=== PATIENT | male | born 1945 | race Caucasian/White ===

== ENCOUNTER 2017-06-06 10:33 | Emergency (ER) | payer MEDICARE, OTHER, SELFPAY ==
[2017-06-06 10:58] VITALS: BP 150/89; PULSE 91; RESP 22; TEMP 37.7; O2SAT 97; BMI 29.0
--- NOTE | 2017-06-06 10:58 | XR_ITS ---
XR chest 2V HISTORY: ITS.REASON: COUGH ORDERING PHYSICIAN: Jana Contreras PATIENT AGE: 71 years COMPARISON: 05/11/2014 FINDINGS: The cardiomediastinal silhouette and pulmonary vascularity are within normal limits. The lungs are clear without infiltrates, suspicious nodules, or pleural effusions. There is a bone plate overlying the lower cervical spine. IMPRESSION: No change with no acute finding
--- NOTE | 2017-06-06 11:08 | HMH.EDUTC ---
[facility] [place] Clinical Impression: Influenza Disposition: Home, Self-Care Condition on Discharge: Good Instructions: Influenza, Cough Additional Instructions: ? Start Tamiflu today if you are going to take it. Discussed risk and possible benefits. ? Lots of rest ? Increase Fluids water, Gatorade, powerade, pedialyte,if infant/toddler/child ? Alternate Tylenol and / or ibuprofen as discussed for fever, aches, chills x 24 hours without medication for symptoms ? Follow up IMMEDIATELY for new or worsening Symptoms OR no noticeable improvement over the next 48-72 hours, 911 for difficulty or breathing ? You or your child area contagious until no fever, aches, chills for 24 hours with medication for symptoms Prescriptions: Dextromethorphan Polistirex [Delsym] 10 ml PO Q12RT PRN #200 [email or web address] PRN Reason: Cough Oseltamivir Phosphate [Tamiflu 75mg Capsule] 75 mg PO BID #10 capsule Referrals: Tommie Mckinnon MD [Primary Care Provider] - Time of Disposition: 11:36 Medical Decision Making Vital Signs: 06/06/17 10:58 Temperature 99.9 F H Temperature Source Temporal Artery Scan Pulse Rate [Right Brachial] 91 H Respiratory Rate 22 Blood Pressure [Right Arm] 150/89 Blood Pressure Mean [Right Arm] 109 Blood Pressure Source [Right Arm] Automatic Cuff Blood Pressure Position [Right Arm] Sitting 02 Sat by Pulse Oximetry 97 Oxygen Delivery Method Room Air - Lab Data Lab Results 06/06/17 10:57: Influenza Type A Ag Positive A, Influenza Type B Ag Negative Orders (Tests/Meds): ORDERS Category Date Time Status Chest XR 2 view (NOT portable) [XR chest 2V] Stat Exams 06/06/17 10:58 Taken - Radiology Data #1 Image(s): Chest Image Reviewed: Yes I discussed the image results w/the radiologist Preliminary Findings: Normal/NAD - Robbi Inquiry Pt receiving controlled substance: No Robbi was queried for this patient: No [facility] [place] - General Stated complaint: cough lungs hurting Mode of Arrival: Ambulatory Source of Information: Patient Limitations: No Limitations Description of Symptoms (Recalled from Triage Doc. by RN): C/O COUGH, CHILLS, AND HOT FLASHES HEENT Symptoms (Recalled from RN notes): No Resp Symptoms (Recalled from RN notes): Yes (COUGH) Skin Symptoms (Recalled from RN notes): No MS Symptoms (Recalled from RN notes): No Functional Status (Recalled from RN notes): N/A - History of Present Illness Provider Complaint: Patient state that he has been having cough, congestion, body aches fever and chills since yesterday that has continued to get worse State that his cough has continued to get worse. State that he has tried several home treatments but nothing has worked - Related Data Home Medications Medication Instructions Recorded Confirmed Aspirin [Aspirin 81mg chewable 81 mg PO DAILY 06/06/17 06/06/17 tab] Losartan/Hydrochlorothiazide 50 mg PO DAILY 06/06/17 06/06/17 [Losartan-Hctz 50-12.5 mg Tab] Rosuvastatin Calcium [Crestor] 20 mg PO DAILY 06/06/17 06/06/17 Previous Rx's Medication Instructions Recorded Dextromethorphan Polistirex 10 ml PO Q12RT PRN #200 [email or web address] 06/06/17 [Delsym] Oseltamivir Phosphate [Tamiflu 75 mg PO BID #10 cap 06/06/17 75mg Capsule] Allergies Allergy/AdvReac Type Severity Reaction Status Date / Time atorvastatin [From LIPITOR] Allergy Intermediate Unverified 05/15/17 14:57 - Worker's Comp Is this a Worker's Comp case?: No [facility] History I have reviewed the patient's past medical history: Yes - *Social History Smoking Status: Never smoker Alcohol Intake: never - Psychiatric History Expresses thoughts of harming self/others: None Suicide Plan Description: No Plan ROS Obtained: Yes All systems reviewed & no additional complaints Physical Exam - General General appearance: alert, in no apparent distress - ENT ENT exam: Present: normal exam, normal oropharynx, mucous membranes moist, TM's normal bilate
[2017-06-06 11:10] LABS: UTC Influenza A Antigen Positive (Negative); UTC Influenza B Antigen Negative (Negative)
== END 2017-06-06 11:48 | disposition home or self-care (01) ==
PROVIDERS: Emergency Provider Nurse Practitioner; Family Provider Family Medicine; PCP Family Medicine
DX: J10.1 Influenza due to other identified influenza virus with other respiratory manifestations (principal); Z88.8 Allergy status to other drugs, medicaments and biological substances
CPT/HCPCS: G0463; 71046; 87804; 99202

== ENCOUNTER → 2017-09-18 11:19 | Outpatient (CLI) | payer MEDICARE, OTHER, SELFPAY ==
--- NOTE | 2017-09-18 11:26 | XR_ITS ---
XR KUB HISTORY: ITS.REASON: UROLITHIASIS ORDERING PHYSICIAN: Nixon Graham MD PATIENT AGE: 72 years FINDINGS: There is a 2 mm calcific density in the left upper quadrant which may be due to a nonobstructing stone as seen on previous CT scan of 06/12/2016. No ureteral calculi apparent. Bowel gas pattern is nonspecific. There are degenerative changes in the lumbar spine. IMPRESSION: Left nephrolithiasis.
== END ==
PROVIDERS: PCP Family Medicine; Visit Provider Urology
DX: N20.9 Urinary calculus, unspecified (principal)
CPT/HCPCS: 74018

== ENCOUNTER → 2017-11-29 08:32 | Outpatient (POV) | payer MEDICARE, SELFPAY | PROVIDERS: Visit Provider Dermatology | DX: Z00.00 Encounter for general adult medical examination without abnormal findings (principal) ==

== ENCOUNTER → 2018-02-28 14:54 | Outpatient (REF) | payer MEDICARE, SELFPAY ==
[2018-02-28 15:17] LABS: Blood Urea Nitrogen 30 mg/dL (7-18); Creatinine,Serum 1.11 mg/dL (0.70-1.30); Estimated Glomerular Filt Rate 65 ml/min (>60); GFR (African American) 78 ML/MIN (>60)
== END ==
LOC: LAB 14:54
PROVIDERS: Visit Provider Family Medicine
DX: R41.3 Other amnesia (principal)
CPT/HCPCS: 82565; 84520

== ENCOUNTER → 2018-03-07 09:06 | Outpatient (CLI) | payer MEDICARE, OTHER, SELFPAY ==
--- NOTE | 2018-03-07 09:08 | MR_ITS ---
MR head/brain wo/w con Ordering Physician: Tommie Mckinnon MD Patient Age: 72 years: Male HISTORY: ITS.REASON: MEMORY LOSS, HEADACHE Memory loss. Headache that starts behind the right ear and goes to the back of head as well as top of head. Dizzy. Blurred vision. Symptoms one year. Progressing slowly TECHNIQUE: Pre and postcontrast imaging of brain : Precontrast Multiplanar FLAIR, T1, T2 weighted images along with axial diffusion/ADC imaging performed on 1.5 T. Siemens, MRI. Postcontrast imaging [id number] ProHance T1-weighted images axial & coronal plane performed COMPARISON : FINDINGS Normal anatomy. Mild age-appropriate cerebral atrophy Normal cranial cervical junction,. Normal corpus callosum. The ventricles and basal cisterns normal.. Normal sella & suprasellar region... Parasellar & [place] region grossly unremarkable on this standard survey MR study . Diffusion images reveal no acute or recent infarct. No mass lesion. No territorial infarct. No extra-axial collection. . Moderately pronounced Chronic small vessel deep white matter ischemic gliotic changes: T2 weighted images as well as the sensitive FLAIR images show numerous high signal foci scattered throughout the white matter of the cerebral hemispheres bilaterally, with numerous periventricular high signal as well as subcortical high signal foci.. Findings are most compatible with chronic small vessel deep white matter ischemic gliotic foci in changes changes. These are high signal foci fairly numerous, with particularly confluent areas of increased deep white matter signal changes seen superior to the atria of the lateral ventricles, left more so than right. . With this there is also some very subtle increased signal transversing the central manuela which also reflects minor vessel ischemic chronic changes at this level. Cerebellum and cerebellar peduncles otherwise unremarkable. Slight generous perivascular spaces/Virchow-Omid spaces diffusely seen throughout the deep white matter cerebral hemispheres bilaterally.-Nonspecific observation but may reflect history of underlying hypertension. Postcontrast studies reveal no areas of enhancement.No enhancing mass lesion. CP angles clear. Cranial nerve VII and VIII appear satisfactory. IACs satisfactory, symmetric.. Temporal bone/Mastoid air cells unremarkable. The visualized paranasal sinuses well-developed and clear.... Moderate engorgement nasal turbinates bilaterally incidentally noted... Scalp and skull unremarkable. IMPRESSION 1.. Chronic Small Vessel deep white matter ischemic/ gliotic changes.-Moderately pronounced at the cerebral hemispheres bilaterally as described above.. Only scant involvement manuela 2. Age-appropriate Mild cerebral atrophy. . 3. No mass lesion. No abnormal areas of enhancement.
--- NOTE | 2018-03-07 10:23 | HMH.ITSHM ---
ROSUVASTATIN TAMSULOSIN LOSARTAN ASPIRIN NEXIUM
== END ==
PROVIDERS: Family Provider Family Medicine; Visit Provider Family Medicine
DX: R41.3 Other amnesia (principal); R51 Headache
CPT/HCPCS: 70553

== ENCOUNTER → 2018-08-20 16:02 | Outpatient (CLI) | payer MEDICARE, OTHER, SELFPAY ==
--- NOTE | 2018-08-20 16:12 | CT_ITS ---
CT abdomen pelvis wo con CLINICAL INDICATION: Right flank pain, history kidney stones ITS.REASON: FLANK PAIN ORDERING PHYSICIAN: Delmer Mays MD PATIENT AGE: 72 years COMPARISON: 06/12/2016 TECHNIQUE: Axial images obtained with sagittal and coronal reformats. All CT scans at the facility use one or more dose reduction, viz: automated exposure control, ma/kV adjustment per patient size (including targeted exams where dose is matched to indication, i.e. head), or iterative reconstruction technique. PROCEDURE: Oral Contrast: None IV Contrast: None . FINDINGS: Lower thorax: Coronary artery calcifications. Small hiatal hernia. The liver, gallbladder, spleen, adrenal glands, and pancreas have an unremarkable unenhanced appearance. There are nonobstructing punctate renal calculi. Largest stone on the right is in the upper pole at 2 mm. The largest stone on the left is in the mid polar region at 5 mm. No ureteral calculi. No hydronephrosis. There is a 1.9 cm soft tissue density medial to the right kidney with some minimal calcification consistent with a renal artery aneurysm. This has been present dating back to 01/29/2014 and is only slightly larger. There is no evidence of acute retroperitoneal hemorrhage. There are small right renal cyst noted. Prior appendectomy. A diverticulum is present within the cecum medially. There is diverticulosis of the descending and sigmoid colon but no evidence of diverticulitis. The prostate is prominent at 5.4 cm. There is degenerative disc disease in the lumbar spine. No acute bony findings are evident. IMPRESSION: 1. There are nonobstructing bilateral renal calculi. No obstructing renal calculi or ureteral calculi and no hydronephrosis. 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 No evidence of acute retroperitoneal hemorrhage. 3. Colonic diverticulosis
== END ==
PROVIDERS: PCP Family Medicine; Visit Provider Family Medicine
DX: R10.9 Unspecified abdominal pain (principal)
CPT/HCPCS: 74176

== ENCOUNTER → 2018-09-17 11:11 | Outpatient (CLI) | payer MEDICARE, OTHER, SELFPAY ==
--- NOTE | 2018-09-17 11:16 | XR_ITS ---
XR KUB HISTORY: ITS.REASON: KIDNEY STONES ORDERING PHYSICIAN: Nixon Graham MD PATIENT AGE: 73 years COMPARISON: 09/18/2017 FINDINGS: A 3 mm stone is present in the mid polar region of the left kidney. No other significant anomalies evident. No obvious ureteral calculi and no significant change from the previous exam. There is a 7 mm area of calcification noted over the left L2 transverse process and may be related to dense renal artery calcification IMPRESSION: Left nephrolithiasis
[2018-09-17 15:26] LABS: Prostate Specific Ag Screen 2.3 ng/mL (0.0-4.0)
== END ==
PROVIDERS: PCP Family Medicine; Visit Provider Urology
DX: N20.0 Calculus of kidney (principal); Z12.5 Encounter for screening for malignant neoplasm of prostate
CPT/HCPCS: 36415; 74018; G0103

== ENCOUNTER → 2019-01-13 08:50 | Outpatient (CLI) | payer MEDICARE, OTHER, SELFPAY | PROVIDERS: PCP Family Medicine; Visit Provider Family Medicine | DX: R00.2 Palpitations (principal) | CPT/HCPCS: 93225; 93226 ==

== ENCOUNTER → 2019-02-13 12:03 | Outpatient (CLI) | payer MEDICARE, OTHER, SELFPAY ==
--- NOTE | 2019-02-13 12:08 | XR_ITS ---
PROCEDURE: XR KUB CLINICAL INDICATION: kidney stone COMPARISON: CT ABDOMEN PELVIS WO CON from 02/05/2019 FINDINGS: Previously noted proximal left ureteral stone is not identified. Pelvic phleboliths are present. No acute bony findings. Nonspecific bowel gas pattern IMPRESSION: No acute findings. Dictated by: Lefty Day MD 02/13/2019 12:38 Electronically signed by Lefty Day MD in [place] 02/13/2019 12:38
== END ==
PROVIDERS: PCP Family Medicine; Visit Provider Urology
DX: N20.0 Calculus of kidney (principal)
CPT/HCPCS: 74018

== ENCOUNTER → 2019-02-18 14:17 | Outpatient (CLI) | payer MEDICARE, OTHER, SELFPAY ==
--- NOTE | 2019-02-18 14:23 | CT_ITS ---
PROCEDURE: CT ABDOMEN PELVIS WO CON CLINICAL HISTORY: NEPHROLITHIASIS, LT FLANK PAIN, GROSS HEMATURIA COMPARISON: CT ABDOMEN PELVIS WO CON from 02/05/2019 TECHNIQUE: Axial images obtained with sagittal and coronal reformats. All CT scans at the facility use one or more dose reduction, viz: automated exposure control, ma/kV adjustment per patient size (including targeted exams where dose is matched to indication, i.e. head), or iterative reconstruction technique. FINDINGS: Lung bases are clear. There is a small hiatal hernia. There is a subtle isodense to the in the patent dome centrally on image number 9 nonspecific too small to categorize. The spleen, adrenal glands, and pancreas have an unremarkable appearance. The gastric wall appears thickened in the fundus and body of the stomach and could be due to nondistention. No radiopaque gallstones evident. There is a punctate 2 mm stone in the upper pole of the right kidney with small right renal cyst. 2 mm stone is present in the lower pole of the left kidney. There is mild dilatation of the left renal collecting system. Previously described proximal ureteral stone on the left is no longer apparent. There is some minimal prominence of the left ureter but no ureteral calculi are evident. There is a mild amount of retained colonic feces. No evidence of appendicitis or diverticulitis. There is diverticulosis of the descending and sigmoid colon. The prostate is enlarged at 5.5 cm. Degenerative changes are noted in the lumbar spine. IMPRESSION: 1. Previously noted left proximal ureteral stone is no longer apparent. 2. Mild dilatation of left renal pelvocaliceal system and ureter which may be related to recently passed stone. No stones are evident in the urinary bladder. 3. Nonobstructing bilateral renal calculi. 4. Colonic diverticulosis. Dictated by: Lefty Day MD 02/18/2019 15:17 Electronically signed by Lefty Day MD in [place] 02/18/2019 15:17
== END ==
PROVIDERS: PCP Family Medicine; Visit Provider Family Medicine
DX: N20.0 Calculus of kidney (principal); R10.9 Unspecified abdominal pain; R31.0 Gross hematuria
CPT/HCPCS: 74176

== ENCOUNTER → 2019-09-23 10:10 | Outpatient (CLI) | payer MEDICARE, OTHER, SELFPAY ==
--- NOTE | 2019-09-23 10:15 | XR_ITS ---
PROCEDURE: XR KUB CLINICAL INDICATION: kidney stone COMPARISON: XR KUB from 02/13/2019 CT ABDOMEN PELVIS WO CON from 02/18/2019 FINDINGS: Gas pattern-The bowel gas pattern is unremarkable. No obvious obstruction. Calcifications-No abnormal calcifications are evident. No obvious renal or ureteral calculi. Bones-No acute bony anomalies evident. Pelvic calcifications are once again noted consistent with phleboliths. There are mild degenerative changes in the lower lumbar spine and hips. IMPRESSION: No acute findings. Dictated by: Lefty Day MD 09/23/2019 10:25 Electronically signed by Lefty Day MD in [place] 09/23/2019 10:25
== END ==
PROVIDERS: PCP Family Medicine; Visit Provider Urology
DX: N20.0 Calculus of kidney (principal)
CPT/HCPCS: 74018

== ENCOUNTER → 2020-03-09 14:45 | Outpatient (CLI) | payer MEDICARE, OTHER, SELFPAY ==
--- NOTE | 2020-03-09 15:26 | MR_ITS ---
PROCEDURE: MR LUMBAR SPINE WO CON CLINICAL INDICATION: RIGHT SIDED LOW BACK PAIN rt sided lbp. x1wk. no injury. COMPARISON: MR APPRAISAL COORDINATOR/O MRI-L-SPINE W/O from 05/30/2016 MR BRAINWW MR head/brain wo/w con from 03/07/2018 TECHNIQUE: Standard multiplanar multiecho sequences are performed without contrast. 3-D MIP and myelographic images are also rendered and reviewed FINDINGS: There is normal alignment. The spinal cord ends at the L1 level. L1-L2: Mild degenerative disc disease with Schmorl's nodes of the endplates. L2-L3: Mild degenerative disc disease with minimal bulging disc and minimal retrolisthesis of L2 of 2 mm. There are type 1 endplate changes with developing Schmorl's nodes at the inferior endplate of L2 and the superior endplate of L3. The endplate changes have developed since the previous exam consistent with discogenic inflammatory changes. There is mild facet and ligamentum hypertrophy with mild bilateral foraminal narrowing. L3-L4: Unremarkable. L4-5: Mild bulging disc. There is an oval area of increased T2 signal in the right lateral recess/medial foraminal area. This measures 8 mm and contains a peripheral rim of decreased T2 signal. This has developed since the previous exam and may represent a synovial cyst. There are facet hypertrophic changes at that area. This is causing right lateral recess narrowing and impingement upon the right L5 nerve root. There is resultant right lateral recess and foraminal narrowing. L5-S1: Type 2 endplate changes with degenerative disc disease and bulging disc with facet and ligamentum hypertrophy with moderate bilateral lateral recess narrowing and moderate bilateral foraminal narrowing. Incidental note is made of right renal cysts. IMPRESSION: 1. L2-L3: Mild degenerative disc disease with minimal bulging disc and minimal retrolisthesis of L2 of 2 mm. There are type 1 endplate changes with developing Schmorl's nodes at the inferior endplate of L2 and the superior endplate of L3. The endplate changes have developed since the previous exam consistent with discogenic inflammatory changes. There is mild facet and ligamentum hypertrophy with mild bilateral foraminal narrowing. 2. L4-5: Mild bulging disc. There is an oval area of increased T2 signal in the right lateral recess/medial foraminal area. This measures 8 mm and contains a peripheral rim of decreased T2 signal. This has developed since the previous exam and may represent a synovial cyst. An extruded herniated disc is felt to be lasts less likely. There are facet hypertrophic changes at that area. This is causing right lateral recess narrowing and impingement upon the right L5 nerve root. There is resultant right lateral recess and foraminal narrowing. 3. L5-S1: Type 2 endplate changes with degenerative disc disease and bulging disc with facet and ligamentum hypertrophy with moderate bilateral lateral recess narrowing and moderate bilateral foraminal narrowing. Dictated by: Lefty Day MD 03/10/2020 11:16 Lefty Day MD in [place] 03/10/2020 11:16
== END ==
PROVIDERS: PCP Family Medicine; Visit Provider Family Medicine
DX: M54.5 Low back pain (principal); M51.36 Other intervertebral disc degeneration, lumbar region
CPT/HCPCS: 72148; 76376

== ENCOUNTER → 2020-04-15 08:42 | Outpatient (POV) | payer MEDICARE, OTHER, SELFPAY ==
[2020-04-15 08:57] VITALS: BP 166/88; PULSE 80; RESP 18; TEMP 36.8; O2SAT 98; BMI 27.2
--- NOTE | 2020-04-15 16:11 | HMH.PMCON ---
Assessment and Plan (1) Right flank pain Status: Acute Category: Medical Code(s): R10.9 - Unspecified abdominal pain - Assessment and plan all Dx Assessment and Plan for all problems:: Patient says he is not having any pain at this time. He did want to establish care in the event that the pain does return. We will plan to see him back in the clinic if his pain does return. He has been instructed to contact clinic if he has any concerns in the future. The patient and I specifically discussed risk factors for COVID19. These risks include, but are not limited to age greater than 60, heart or lung disease, diabetes, immunosuppression, and travel. We also discussed NSAIDs may worsen COVID19 infection or symptoms. Patient should not use NSAIDs to treat COVID19 signs or symptoms. Patient was also informed that any type of corticosteroid of any form (oral or injection) will decrease the patient's immune system response and may increase the likelihood of COVID19 infection and symptoms[address] Dr. Rossi has reviewed this note and agrees with this plan of care. This note was dictated using voice recognition software and make contain errors or omissions. HPI - Data of Consult Patient: new to practice Consult date: 04/15/20 Requesting Physician: Layne Mary APRN Primary Care Provider: Tommie Mckinnon MD - Consult Narrative Reason for consult: Right flank pain History of present illness: Mr. Gerard is a 74 year old male who presents today for consultation for complaints of right flank pain. He was referred to us by Dr. Mckinnon. 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 He says that he was on the tractor for approximately 10 to 12 hours/day up to 2 to 3 weeks cutting hay and doing frequent lifting and turning/extension at his waist. He says he started to develop severe right side pain and thought that it was a kidney stone. Patient says that after getting off of the tractor he could not move or walk. He did go to his primary care provider and was given some oral medication which caused him to have severe constipation for about 3 weeks. He then began having bloody stools after his bout with constipation. He says that the medication did not give him much relief but instead only made him sleep. Patient says that his pain is gone. His pain is a 0 out of 10 today. He is here today to establish care, however. Patient says if the pain does return he would like to be able to come into the clinic. He says at this time he is feeling well without any issues. CC: Layne Mary APRN [facility] History I have reviewed the patient's past medical history: Yes Medical History: Reports:: Coronary Artery Disease, Hyperlipidemia, Hypertension, Kidney Stones, Ulcer Denies:: Cancer, Diabetes Mellitus Type 1, Diabetes Mellitus Type 2, MRSA *Have you ever received a pneumonia vaccine?: Yes *Have you received a flu vaccine this season?: Yes Other Medical History: Reports: Arthritis Laterality Cases: Left: Other Other Surgeries: Yes: No Previous Surgery, Appendectomy, Cardiac Catheterization, Cardiac Surgery, Colonoscopy, Coronary Stent, Other Amputation: No Fractures: No - *Social History Smoking Status: Never smoker Tobacco Type: smokeless tobacco # Packs/Day (cigarettes): 1 Alcohol Intake: never Alcohol Intake Frequency:: other Substance Use Type: denies use *Occupational Status:: other Housing: house Household Members: spouse *Travel in the last 8 weeks: None Family Hx:: Unable to obtain Review of Systems - Review of Systems Review of Systems General: No recent weight changes, no fever, no sleep disturbances Respiratory: No cough, no shortness of air, no recurring pulmonary infections Cardiovascular/peripheral vascular: No chest pain, no palpitations, no edema, no shortness of breath Gastrointestinal: No new onset incontinence, normal bowel movements reported Genitourinary: No new onset incontinence
== END ==
PROVIDERS: PCP Family Medicine; Visit Provider Clinical Nurse Specialist Family Health
DX: R10.9 Unspecified abdominal pain (principal)
CPT/HCPCS: 99202

== ENCOUNTER → 2020-12-09 14:21 | Outpatient (CLI) | payer MEDICARE, OTHER, SELFPAY ==
[2020-12-09 16:57] LABS: Prostate Specific Ag Screen 3.4 ng/ml (0.0-4.0)
== END ==
PROVIDERS: Visit Provider Urology
DX: Z12.5 Encounter for screening for malignant neoplasm of prostate (principal)
CPT/HCPCS: 36415; G0103

== ENCOUNTER → 2021-01-18 08:28 | Outpatient (CLI) | payer MEDICARE, OTHER, SELFPAY ==
--- NOTE | 2021-01-18 09:47 | MR_ITS ---
PROCEDURE: MR HEAD/BRAIN WO CON CLINICAL INDICATION: memory loss COMPARISON: MR BRAINWW MR head/brain wo/w con from 03/07/2018 TECHNIQUE: Routine multiplanar multi echo sequences are performed without gadolinium enhancement. FINDINGS: No midline shift or mass effect. No evidence of acute infarction. There are scattered periventricular and subcortical T2 white matter hyperintensities as well as hyperintensities within the manuela consistent with ischemic gliotic change from microvascular disease. These areas do not demonstrate restricted diffusion. There is mild generalized atrophy. T2 hyperintensities have slightly increased in number in the manuela and in the right parietal lobe. The cerebellopontine angles and cerebellum have an unremarkable appearance. Dilated perivascular spaces are noted. The pituitary, optic chiasm, corpus callosum, and craniocervical junction have an unremarkable appearance. No mastoid effusion or sinus air-fluid level IMPRESSION: 1. No acute finding. 2. Scattered periventricular and subcortical T2 white matter hyperintensities as well as hyperintensities in the manuela consistent with ischemic gliotic change from microvascular disease slightly progressed in the manuela and in the right parietal lobe with associated generalized atrophy. Dictated by: Lefty Day MD 01/19/2021 07:31 Lefty Day MD in [place] 01/19/2021 07:31
[2021-01-18 11:21] LABS: Alanine Aminotransferase 24 U/L (12-78); Albumin Level 4.3 g/dl (3.5-5.0); Albumin/Globulin Ratio 1.2 (1.1-1.8); Alkaline Phosphatase 102 U/L (38-126); Anion Gap 12.3 mEq/L (5-15); Aspartate Amino Transferase 38 U/L (17-59); Bilirubin,Total 0.6 mg/dl (0.2-1.3); Blood Urea Nitrogen 18 mg/dl (9-20); Calcium 9.3 mg/dl (8.4-10.2); Carbon Dioxide 25 mmol/L (22.0-30.0); Chloride 106 mmol/L (98-107); Estimated Glomerular Filt Rate 72 ml/min (>60); GFR (African American) 88 ML/MIN (>60); Globulin 3.6 g/dL (1.3-3.2); Glucose 89 mg/dl (74-100); Potassium 4.3 mmoL/L (3.5-5.1); Sodium 139 mmol/L (136-145); Total Protein,Serum 7.9 g/dl (6.3-8.2)
[2021-01-18 11:53] LABS: Thyroid Stimulating Hormone 2.69 uIU/mL (0.465-4.68)
[2021-01-18 12:27] LABS: Vitamin B12 238 pg/mL (239-931)
[2021-01-18 12:33] LABS: Folate 9.55 ng/mL
== END ==
PROVIDERS: PCP Family Medicine; Visit Provider Specialist
DX: G31.84 Mild cognitive impairment of uncertain or unknown etiology (principal); G47.33 Obstructive sleep apnea (adult) (pediatric); G93.40 Encephalopathy, unspecified; I10 Essential (primary) hypertension
CPT/HCPCS: 36415; 70551; 80053; 82607; 82746; 84443

== ENCOUNTER → 2021-02-10 15:50 | Outpatient (CLI) | payer MEDICARE, OTHER, SELFPAY ==
[2021-02-12 15:31] LABS: Antiparietal Cell Antibody 8.6 Units (0.0-20.0)
[2021-02-14 08:32] LABS: Intrinsic Factor Abs, Serum 1.1 AU/mL (0.0-1.1)
== END ==
PROVIDERS: Visit Provider Specialist
DX: E53.8 Deficiency of other specified B group vitamins (principal); G31.84 Mild cognitive impairment of uncertain or unknown etiology; I10 Essential (primary) hypertension
CPT/HCPCS: 36415; 83516; 86340

== ENCOUNTER → 2021-08-25 09:32 | Outpatient (CLI) | payer MEDICARE, OTHER, SELFPAY ==
[2021-08-25 10:07] LABS: Basophils % 0.8 % (0.1-2.0); Eosinophils # 0.1 K/mm3 (0.0-0.4); Eosinophils % 1.6 % (0.1-12.0); Hematocrit 41.5 % (42.0-52.0); Hemoglobin 13.6 g/dL (14.1-18.0); Lymphocytes # 1.6 K/mm3 (0.7-4.5); Lymphocytes % 29.4 % (10-50); Mean Corpuscular HGB Conc 32.7 g/dL (31.8-35.4); Mean Corpuscular Hemoglobin 32.1 pg (27.0-31.2); Mean Corpuscular Volume 98.1 fl (80-94); Monocytes # 0.3 K/mm3 (0.1-1.0); Monocytes % 5.6 % (1.7-9.3); Neutrophils # 3.4 K/mm3 (1.8-7.8); Neutrophils % 62.7 % (37.0-80.0); Platelet Count 309 K/mm3 (142-424); Red Blood Count 4.23 M/mm3 (4.60-6.20); Red Cell Distribution Width 13.8 % (11.5-17.5); White Blood Count 5.4 K/mm3 (4.8-10.8)
[2021-08-25 10:09] LABS: Chloride 107 mmol/L (98-107); Sodium 138 mmol/L (136-145)
[2021-08-25 10:10] LABS: Potassium 4.1 mmoL/L (3.5-5.1)
[2021-08-25 10:12] LABS: Alanine Aminotransferase 25 U/L (12-78); Albumin Level 4.1 g/dl (3.5-5.0); Albumin/Globulin Ratio 1.3 (1.1-1.8); Alkaline Phosphatase 133 U/L (38-126); Anion Gap 11.1 mEq/L (5-15); Aspartate Amino Transferase 39 U/L (17-59); Bilirubin,Total 0.8 mg/dl (0.2-1.3); Blood Urea Nitrogen 18 mg/dl (9-20); Calcium 8.2 mg/dl (8.4-10.2); Carbon Dioxide 24 mmol/L (22.0-30.0); Estimated Glomerular Filt Rate 65 ml/min (>60); GFR (African American) 79 ML/MIN (>60); Globulin 3.2 g/dL (1.3-3.2); Glucose 91 mg/dl (74-100); Total Protein,Serum 7.3 g/dl (6.3-8.2)
--- NOTE | 2021-08-25 10:12 | CT_ITS ---
FINAL REPORT CLINICAL HISTORY: HISTORY OF HEMATURIA/GROSS HEMATURIA COMPARISON: February 18, 2019 FINDINGS: Axial CT images of the abdomen and pelvis were obtained without intravenous contrast. Coronal reformatted images were also obtained.This study was performed with techniques to keep radiation doses as low as reasonably achievable (ALARA). Individualized dose reduction techniques using automated exposure control or adjustment of mA and/or kV according to the patient's size were employed. Abdomen: The lung bases are clear. There are 2 presumed right renal parapelvic cysts. There is a new 10 mm stone in the upper pole the right kidney and a new 8 mm stone in the lower pole of the right kidney. There is a less than 3 mm non obstructing stone in the left kidney again noted. There is no hydronephrosis. The gallbladder is present. The liver, spleen and pancreas have an unremarkable, unenhanced appearance. No mass or adenopathy is seen. There are moderate vascular calcifications. Pelvis: The appendix is not seen but no localized inflammation is seen in this region. There is no evidence of ureteral dilation or ureteral stone. There is mild urinary bladder wall thickening which is likely inflammatory. There are 2 new bladder stones measuring 16 mm each on the left side of the bladder. No mass or abnormal fluid collection is identified. There are multiple diverticula. The prostate is enlarged. IMPRESSION: Bilateral renal stones as described. Bladder stones as described. Enlarged prostate. Reviewed, Interpreted and Dictated by Amadou Sood III, MD Transcribed by Amy Bland Authenticated by Amadou Sood III, MD on 08/25/2021 11:41:54 AM [facility]
== END ==
PROVIDERS: PCP Family Medicine; Visit Provider Nurse Practitioner Family
DX: R31.0 Gross hematuria (principal); Z87.442 Personal history of urinary calculi
CPT/HCPCS: 36415; 74176; 80053; 85025

== ENCOUNTER → 2021-10-05 09:09 | Outpatient (CLI) | payer MEDICARE, OTHER, SELFPAY ==
[2021-10-05 09:16] LABS: MANUAL DIFFERENTIAL MANUAL DIFFERENTIAL (MANUAL DIFF)
--- NOTE | 2021-10-05 09:31 | XR_ITS ---
FINAL REPORT CLINICAL HISTORY: kidney stone FINDINGS: SINGLE VIEW ABDOMEN A single view of the abdomen was obtained. There is a nonobstructive bowel gas pattern. Bowel gas and stool obstructive renal outline. There is no definite renal stone seen. There are no abnormally dilated loops of small bowel. There is a moderate amount of retained stool seen in the colon. IMPRESSION: Stool burden as above. Reviewed, Interpreted and Dictated by Amadou Sood III, MD Transcribed by Mily Brooks Authenticated by Amadou Sood III, MD on 10/05/2021 11:10:47 AM [facility]
[2021-10-05 10:27] LABS: Blood Urea Nitrogen 17 mg/dl (9-20); Calcium 9.4 mg/dl (8.4-10.2); Carbon Dioxide 26 mmol/L (22.0-30.0); Chloride 104 mmol/L (98-107); Estimated Glomerular Filt Rate 65 ml/min (>60); GFR (African American) 78 ML/MIN (>60); Glucose 100 mg/dl (74-100); Sodium 140 mmol/L (136-145)
[2021-10-05 10:28] LABS: Basophils # 0.1 K/mm3 (0-0.2); Basophils % 0.8 % (0.1-2.0); Eosinophils # 0.1 K/mm3 (0.0-0.4); Eosinophils % 1.2 % (0.1-12.0); Hematocrit 41.5 % (42.0-52.0); Hemoglobin 13.7 g/dL (14.1-18.0); Lymphocytes # 1.7 K/mm3 (0.7-4.5); Lymphocytes % 28.8 % (10-50); Mean Corpuscular Volume 96.8 fl (80-94); Mean Platelet Volume 8.3 fl (7.4-10.4); Monocytes # 0.4 K/mm3 (0.1-1.0); Monocytes % 6.8 % (1.7-9.3); Neutrophils # 3.8 K/mm3 (1.8-7.8); Neutrophils % 62.5 % (37.0-80.0); Platelet Count 329 K/mm3 (142-424); Red Blood Count 4.29 M/mm3 (4.60-6.20); Red Cell Distribution Width 14.1 % (11.5-17.5); White Blood Count 6.1 K/mm3 (4.8-10.8)
[2021-10-05 12:38] LABS: Eosinophils % 2 % (0-3); Lymphocytes % 28 % (10-50); Monocytes % 3 % (2-9); Neutrophils % 66 % (42-76); Platelet Estimate Normal; RBC Morphology Normal; Total Cells Counted 100
== END ==
PROVIDERS: PCP Family Medicine; Visit Provider Urology
DX: N20.0 Calculus of kidney (principal); Z01.812 Encounter for preprocedural laboratory examination; Z11.52 Encounter for screening for COVID-19
CPT/HCPCS: 36415; 74018; 80048; 85007; 85014; 85018; 85048; 85049; C9803; U0003; U0005

== ENCOUNTER 2021-10-07 08:34 | Day surgery (SDC) | payer MEDICARE, OTHER, SELFPAY ==
[2021-10-05 12:52] VITALS: BMI 24.3
[2021-10-07] VITALS (12 sets, daily range): BP systolic 130–171; BP diastolic 82–96; PULSE 66–112; RESP 14–18; TEMP 36.2–43; O2SAT 94–98
--- NOTE | 2021-10-07 08:44 | XR_ITS ---
FINAL REPORT CLINICAL HISTORY: KIDNEY STONE HX OF APPENDECTOMY COMPARISON: October 05, 2021 FINDINGS: A single view of the abdomen was obtained. Bowel gas and stool obscures the renal outlines. There is a nonobstructive bowel gas pattern. There are no abnormally dilated loops of small bowel. There is a moderate amount of retained stool. No definite renal stones are identified. IMPRESSION: Moderate amount of retained stool. No definite renal stone. Reviewed, Interpreted and Dictated by Amadou Sood III, MD Transcribed by Trav Tafoya Authenticated by Amadou Sood III, MD on 10/07/2021 09:58:29 AM [facility]
--- NOTE | 2021-10-07 09:28 | P.PN_ITS ---
[facility] Anesthesia Checklist - Patient Identification Patient Identification: Verbal (Name & ) - Structural Data Admitted From: Home Planned Operative Procedure/s: ESWL Consent for Planned Operative Procedure(s) Verified: Yes Verified Documents: Surgical Consent - NPO Status Verified Time NPO: 00:00 - Additional verifications Anesthesia Reactions: No Hx Blood Transfusions: No Blood Transfusion Reaction: No - Airway Assessment C-Spine Mobility Assessed: Yes TMJ Mobility Assessed: Yes Dentition: Good Dentition - Neurological Assessment Level of Consciousness: Awake, Alert, Appropriate - Anesthesia Plan Anesthesia Risk discussed: Yes ASA Class: II Anesthesia Type: General [facility] History I have reviewed the patient's past medical history: Yes Medical History: Reports:: Anxiety, Chronic Obstructive Pulmonary Disease (COPD), Coronary Artery Disease, Hyperlipidemia, Hypertension, Kidney Stones, Palpitations, Ulcer Denies:: Cancer, Diabetes Mellitus Type 1, Diabetes Mellitus Type 2, Internal Pacemaker, MRSA, Seizures *Have you ever received a pneumonia vaccine?: Yes *Have you received a flu vaccine this season?: Yes Other Medical History: Reports: Arthritis. Denies: Blood Transfusion Reaction Anesthesia experience/problems:: none Laterality Cases: Left: Other Other Surgeries: Yes: No Previous Surgery, Appendectomy, Cardiac Catheterization, Cardiac Surgery, Colonoscopy, Coronary Stent, Other. No: Pacemaker Amputation: No Fractures: No - *Social History Smoking Status: Never smoker # Packs/Day (cigarettes): 1 Alcohol Intake: never Alcohol Intake Frequency:: other Substance Use Type: denies use *Occupational Status:: retired Housing: house Household Members: spouse *Travel in the last 8 weeks: None - Psychiatric History Pschychiatric History:: Reports:: Anxiety Family Hx:: No significant family history
--- NOTE | 2021-10-07 11:12 | HMH.ANESI ---
[facility] Anesthesia Record Part I Intake, IV Amount: 700 Estimated blood loss (mL): 10 Urine output (mL): 0 Blood Pressure: 152/82 SaO2: 97 Pulse Rate: 98 Respiratory Rate: 14 Temperature: 97.1 F Patient is:: Drowsy Stable to PACU at:: 11:10
--- NOTE | 2021-10-07 14:33 | HMH.OPNOTE ---
Date of procedure: 10/07/21 Pre-op Diagnosis:: Right kidney stones x2, bladder stones x2 Post-op Diagnosis:: Same Procedure performed:: Right ESWL, cystolitholopaxy of 2 large bladder stones with laser lithotripsy Surgeon:: Wayne Orozco MD MANAGER CARDIOVASCULAR:: Other (adalgisa s) Anesthesia: LMA Estimated blood loss (mL): 1 Clinical Note:: 76-year-old white male with recent gross hematuria noted to have 2 kidney stones on the right side as well as 2 large bladder stones. He presents today for urologic management. Operative findings:: Patient with 2 smooth 18 mm bladder stones that are not well calcified on the KUB. His kidney stones are not well calcified either that were opaque enough to see for ESWL. Operative note:: Patient taken to the operating suite after informed consent was obtained. He was placed on the operating table in the supine position and general anesthesia administered. Preoperative antibiotics and sequential compression devices placed. He was then placed into the dorsal lithotomy position and prepped draped in the standard surgical fashion. The 22 [place] cystoscope passed into the urethra and into the bladder. Patient had a high bladder neck. The bladder showed 2 smooth bladder stones that were each about 18 mm in size. A 5 [place] ureteral cath was passed into the right ureteral orifice and up to the right kidney and under fluoroscopy the right renal stones were hazy but visible. Our 500 nm laser fiber then passed through the cystoscope and the bladder stones were lasered until there were small enough to be irrigated free. The stones were very hard and lamellated. Some the larger fragments were extracted with the basket at the end of the case. During the time that we were treating the bladder stone we also had deposition the patient so that lithotripsy can be performed and F2 the lithotripter was focused onto the hazy calcification below the ureteral catheter. 3000 shockwaves delivered to the stone with good fragmentation. The Bugbee was used to cauterize a couple of bleeding areas at the bladder neck. A 16 [place] Palafox catheter then passed without difficulty. Patient tolerated the procedure well. Condition: stable Disposition: PACU Specimens:: Bladder stones Complications:: None
--- NOTE | 2021-10-10 07:27 | HMH.ANESII ---
[facility] Anesthesia Record Part II Discharge Time: 11:39 Destination: Home PACU nurse assessment reviewed?: Yes Patient Condition:: Good Anesthesia Complications:: None Swallowing reflex intact?: Yes Cyanosis?: No Blood Pressure: 143/64 Pulse Rate: 100 Temperature: 97.4 F Mental Status: Alert & Oriented Pain level:: 0 Nausea and/or vomitting:: None Intake, IV Amount: 0
[2021-10-10 07:29] VITALS: BP 143/64; PULSE 100; TEMP 36.3
== END 2021-10-07 12:50 | disposition home or self-care (01) ==
PROVIDERS: PCP Nurse Practitioner Family; Visit Provider Urology
DX: N20.0 Calculus of kidney (principal); N21.0 Calculus in bladder; F41.9 Anxiety disorder, unspecified; J44.9 Chronic obstructive pulmonary disease, unspecified; I25.10 Atherosclerotic heart disease of native coronary artery without angina pectoris; E78.5 Hyperlipidemia, unspecified; I10 Essential (primary) hypertension; R00.2 Palpitations; Z87.19 Personal history of other diseases of the digestive system; M19.90 Unspecified osteoarthritis, unspecified site; Z88.8 Allergy status to other drugs, medicaments and biological substances; Z79.899 Other long term (current) drug therapy
CPT/HCPCS: 50590; 52318; 74018; 82370; 96374; J2405

== ENCOUNTER → 2021-11-10 07:52 | Outpatient (CLI) | payer MEDICARE, OTHER, SELFPAY ==
--- NOTE | 2021-11-10 07:59 | XR_ITS ---
FINAL REPORT CLINICAL HISTORY: KIDNEY STONE, right side pain COMPARISON: October 07, 2021 FINDINGS: SINGLE VIEW ABDOMEN A single view of the abdomen was obtained. There is a nonobstructive bowel gas pattern. There are no abnormally dilated loops of small bowel. There is a moderate amount of retained stool. No renal stone is identified. There are multiple phleboliths within the pelvis. IMPRESSION: Moderate amount of retained stool. No renal stone is identified. Reviewed, Interpreted and Dictated by Amadou Sood III, MD Transcribed by Amy Bland Authenticated and . [facility]
== END ==
PROVIDERS: PCP Internal Medicine Adolescent Medicine; Visit Provider Urology
DX: N20.0 Calculus of kidney (principal)
CPT/HCPCS: 74018

== ENCOUNTER → 2022-02-07 09:18 | Outpatient (CLI) | payer MEDICARE, OTHER, SELFPAY ==
--- NOTE | 2022-02-07 09:24 | CT_ITS ---
FINAL REPORT TECHNIQUE: Axial images of the head were obtained with contrast. Coronal reformatted images were also obtained. This study was performed with techniques to keep radiation doses as low as reasonably achievable (ALARA). Individualized dose reduction techniques using automated exposure control or adjustment of mA and/or kV according to the patient's size were employed. CLINICAL HISTORY: NEWLY DAILY PERSISTANT HEADACHE FINDINGS: CT HEAD/BRAIN W/CONTRAST There is generalized age-appropriate atrophy. Periventricular low-attenuation areas are seen consistent with mild chronic ischemic changes. There is no evidence of intracranial hemorrhage or mass. There is no evidence of acute infarct. There is no evidence of shift of the midline structures. No skull abnormality is seen on the bone window images. There is no abnormal contrast enhancement. IMPRESSION: Atrophy and mild periventricular chronic ischemic changes. No acute intracranial abnormality identified. Reviewed, Interpreted and Dictated by Amadou Sood III, MD Transcribed by Amy Bland Authenticated and [facility]
== END ==
PROVIDERS: PCP Internal Medicine Adolescent Medicine; Visit Provider Family Medicine
DX: G44.52 New daily persistent headache (NDPH) (principal)
CPT/HCPCS: 70460; Q9967

== ENCOUNTER 2022-05-27 09:32 | Emergency (ER) | payer MEDICARE, OTHER, SELFPAY ==
--- NOTE | 2022-05-27 09:54 | EXP.UTC ---
Discharge Plan Disposition Patient Disposition: Home, Self-Care Condition: Good Prescriptions Prescriptions: New mupirocin 2 % ointment 1 applic topical TID 7 Days Qty: 15 0RF amoxicillin-pot clavulanate 875-125 mg Tablet 1 tab PO Q12H Qty: 20 0RF No Action losartan 25 mg tablet 25 mg PO DAILY tamsulosin 0.4 mg capsule 0.4 mg PO DAILY 90 Days Qty: 90 pantoprazole 40 mg tablet,delayed release (DR/EC) 40 mg PO DAILY cefdinir 300 mg capsule 300 mg PO aspirin 81 MG tablet,chewable 81 mg PO DAILY rosuvastatin 20 MG tablet 20 mg PO DAILY donepezil 5 MG tablet 5 mg PO DAILY memantine 5 MG tablet 5 mg PO DAILY Referrals Follow up/Referrals: Tommie Mckinnon MD [Primary Care Provider] - See instructions Activity Restrictions/Add. Instructions Additional Instructions/Restrictions: Keep the wounds clean and dry. Follow up with your regular doctor. Take the antibiotics as directed and apply the topical antibiotics as directed. Make sure you stay in contact with the health department regarding the health of the dog. Watch the puncture wounds for signs of worsening infection, such as worsening redness, drainage, swelling, etc. Return in 7 to 10 days to have the sutures removed. GO TO THE ER FOR ANY WORSENING SYMPTOMS Clinical Impressions Clinical Impression: Dog bite, Laceration of hand, left, Need for Tdap vaccination Instructions Patient Instructions: Animal Bites, Amoxicillin and Clavulanic Acid, Tetanus, Diphtheria, Pertussis (Tdap) Vaccine, DI for Dog Bite Discharge ED Provider: Redd Yip [facility] General Stated complaint: [id number], Left hand dog bite Time Seen by Provider: 05/27/22 09:54 Related Data Home Medications Medication Instructions Recorded Confirmed aspirin 81 mg chewable tablet 81 mg PO DAILY Blood thinner 06/06/17 11/10/21 rosuvastatin 20 mg tablet 20 mg PO DAILY Cholesterol 06/06/17 11/10/21 tamsulosin 0.4 mg capsule 0.4 mg PO DAILY prostate 90 days 04/15/18 11/10/21 #90 caps pantoprazole 40 mg tablet,delayed 40 mg PO DAILY GERD 02/06/19 11/10/21 release losartan 25 mg tablet 25 mg PO DAILY hld 01/11/21 11/10/21 donepezil 5 mg tablet 5 mg PO DAILY memory 10/07/21 11/10/21 memantine 5 mg tablet 5 mg PO DAILY memory 10/07/21 11/10/21 cefdinir 300 mg capsule 300 mg PO 10/10/21 11/10/21 Previous Rx's Medication Instructions Recorded amoxicillin 875 mg-potassium 1 tab PO Q12H #20 tabs 05/27/22 clavulanate 125 mg tablet mupirocin 2 % topical ointment 1 applic topical TID 7 days #15 05/27/22 grams Allergies Allergy/AdvReac Type Severity Reaction Status Date / Time atorvastatin [From LIPITOR] Allergy Intermediate Verified 05/27/22 10:05 [facility] Disclaimer: The information contained in this section may have been updated after the patient was seen, as this information can be updated by other users. Social History Smoking Status: Never smoker alcohol intake: never substance use type: denies use current occupational status: retired Travel in the last 8 weeks: None household members: spouse housing: house caffeine: No ROS Obtained: Yes All systems reviewed & no additional complaints except as documented Constitutional Constitutional: Denies chills and Denies fever(s) Eyes Eyes: Denies eye discharge ENT Ears, Nose, Mouth, and Throat: Denies dizziness, Denies otalgia and Denies sore throat Cardiovascular Cardiovascular: Denies chest pain Respiratory Respiratory: Denies shortness of breath, Denies chest congestion, Denies cough, Denies stridor and Denies wheezing Gastrointestinal Gastrointestingal: Denies nausea or vomiting Musculoskeletal Musculoskeletal: Reports system reviewed and no additional complaints, except as documented and Denies arthralgias Integumentary/Breasts Skin/Breast: Reports as per HPI
[2022-05-27 10:03] VITALS: BP 157/67; PULSE 78; RESP 18; TEMP 36.7; O2SAT 97; BMI 26.6
[2022-05-27 11:31] VITALS: BP 157/67; PULSE 78; RESP 18; TEMP 36.7
== END 2022-05-27 11:34 | disposition home or self-care (01) ==
PROVIDERS: Emergency Provider Nurse Practitioner Family; PCP Family Medicine
DX: S61.412A Laceration without foreign body of left hand, initial encounter (principal); W54.0XXA Bitten by dog, initial encounter; Z23 Encounter for immunization
CPT/HCPCS: 12001; 90471; 90714; 99213; G0463

== ENCOUNTER 2022-06-14 12:13 | Emergency (ER) | payer MEDICARE, OTHER, SELFPAY ==
[2022-06-14] VITALS (8 sets, daily range): BP systolic 130–146; BP diastolic 63–84; PULSE 56–78; RESP 13–19; TEMP 36.4; O2SAT 97–98; BMI 23.5
[2022-06-14 12:37] LABS: Microscopic, Urine URINE MICROSCOPIC (MICROSCOPIC)
[2022-06-14 12:44] LABS: Appearance,Urine CLEAR (Clear); Blood, Urine 3+ (Negative); Color,Urine YELLOW (Yellow); Glucose,Urine (UA) Negative (Negative); Ketones,Urine Negative (Negative); Leukocyte Esterase,Urine Negative (Negative); Nitrate,Urine Negative (Negative); Protein,Urine 1+ (Negative); Specific Gravity, Urine >= 1.030 (1.005-1.030); Urobilinogen,Urine 0.2 EU/dl (0.2)
[2022-06-14 12:46] LABS: Bilirubin,Urine 1+ (Negative)
[2022-06-14 12:57] LABS: Basophils # 0.1 K/mm3 (0-0.2); Basophils % 0.8 % (0.1-2.0); Eosinophils # 0.2 K/mm3 (0.0-0.4); Eosinophils % 1.8 % (0.1-12.0); Hematocrit 45.1 % (42.0-52.0); Hemoglobin 14.5 g/dL (14.1-18.0); Lymphocytes # 1.5 K/mm3 (0.7-4.5); Lymphocytes % 16.2 % (10-50); Mean Corpuscular HGB Conc 32.1 g/dL (31.8-35.4); Mean Corpuscular Hemoglobin 31.7 pg (27.0-31.2); Mean Platelet Volume 8.2 fl (7.4-10.4); Monocytes # 0.4 K/mm3 (0.1-1.0); Monocytes % 4.5 % (1.7-9.3); Neutrophils # 7.2 K/mm3 (1.8-7.8); Neutrophils % 76.8 % (37.0-80.0); Platelet Count 421 K/mm3 (142-424); Red Blood Count 4.56 M/mm3 (4.60-6.20); Red Cell Distribution Width 14.9 % (11.5-17.5); White Blood Count 9.4 K/mm3 (4.8-10.8)
[2022-06-14 12:57] LABS: Bacteria,Urine 1+ /lpf; RBC,Urine 50-100 #/hpf (0-3); Squamous Epithelial Cell,Urine Occasional #/hpf (0-5); Uric Acid Crystals,Urine 2+ /lpf; WBC,Urine Occasional #/hpf (0-3)
[2022-06-14 12:59] LABS: Chloride 108 mmol/L (98-107)
[2022-06-14 13:00] LABS: Potassium 4.1 mmoL/L (3.5-5.1); Sodium 143 mmol/L (136-145)
[2022-06-14 13:02] LABS: Alanine Aminotransferase 21 U/L (12-78); Alkaline Phosphatase 87 U/L (38-126); Anion Gap 10.1 mEq/L (5-15); Aspartate Amino Transferase 32 U/L (17-59); Bilirubin,Total 0.6 mg/dl (0.2-1.3); Blood Urea Nitrogen 21 mg/dl (9-20); Carbon Dioxide 29 mmol/L (22.0-30.0); Creatinine Clearance Estimated 39 mL/min (50-200); Estimated Glomerular Filt Rate 45 ml/min (>60); GFR (African American) 55 ML/MIN (>60); Lipase 199 U/L (23-300)
[2022-06-14 13:03] LABS: Albumin Level 4.5 g/dl (3.5-5.0); Albumin/Globulin Ratio 1.3 (1.1-1.8); Calcium 9.2 mg/dl (8.4-10.2); Globulin 3.6 g/dL (1.3-3.2); Glucose 115 mg/dl (74-100); Total Protein,Serum 8.1 g/dl (6.3-8.2)
[2022-06-14 13:07] LABS: Lactic Acid 1.5 mmol/L (0.7-2.1)
--- NOTE | 2022-06-14 13:27 | CT_ITS ---
FINAL REPORT TECHNIQUE: Thin section axial images were obtained from the lung bases to the pubic symphysis without IV contrast. Coronal reconstruction images were obtained from the axial data. Exam was performed using dose reduction technique. CLINICAL HISTORY: concern for nephrolitiasis, hx stone, right side pain COMPARISON: 08/25/2021 FINDINGS: There is right hydronephrosis and hydroureter. There is an obstructing proximal right ureteral stone measuring 7 mm. In addition, there are nonobstructing right renal stones. No left renal stones are identified. The gallbladder is present. The remaining unenhanced solid abdominal organs are unremarkable. The stomach is mildly distended. There is no evidence of small bowel obstruction. The appendix is not identified but there are no secondary findings to suggest appendicitis. There is diverticulosis without evidence of diverticulitis. There is a moderate amount of stool throughout the colon. The prostate is enlarged. Bladder stones are identified, smaller than previously seen. There is wall thickening of the urinary bladder with surrounding abnormal attenuation, cystitis is not exclude. There is no lymphadenopathy or ascites. No acute osseous abnormality is identified. IMPRESSION: Right hydronephrosis and hydroureter secondary to a proximal right ureteral stone measuring 7 mm. Nonobstructing right renal stones. Bladder stones. Wall thickening of the urinary bladder with surrounding abnormal attenuation, cystitis is not excluded. Reviewed, Interpreted and Dictated by July Munoz MD Transcribed by Mily Brooks Authenticated and [facility]
--- NOTE | 2022-06-14 15:29 | PC.NURSE ---
Scot, EMT called [facility] for consult
--- NOTE | 2022-06-14 15:31 | PC.NURSE ---
WEI LENNON at for update on POC
--- NOTE | 2022-06-14 20:13 | HMH.EDGENADL ---
Discharge Plan Disposition Patient Disposition: Home, Self-Care Condition: Fair Prescriptions Prescriptions: New cefdinir 300 mg capsule 300 mg PO BID 10 Days Qty: 20 0RF hydrocodone-acetaminophen 5-325 mg tablet 1 tab PO Q8H PRN (Reason: pain) Qty: 14 0RF ondansetron 4 mg tablet,disintegrating 4 mg PO TIDP PRN (Reason: Nausea) Qty: 10 0RF No Action losartan 25 mg tablet 25 mg PO DAILY tamsulosin 0.4 mg capsule 0.4 mg PO DAILY 90 Days Qty: 90 pantoprazole 40 mg tablet,delayed release (DR/EC) 40 mg PO DAILY cefdinir 300 mg capsule 300 mg PO aspirin 81 MG tablet,chewable 81 mg PO DAILY rosuvastatin 20 MG tablet 20 mg PO DAILY donepezil 5 MG tablet 5 mg PO DAILY memantine 5 MG tablet 5 mg PO DAILY mupirocin 2 % ointment 1 applic topical TID 7 Days Qty: 15 0RF amoxicillin-pot clavulanate 875-125 mg Tablet 1 tab PO Q12H Qty: 20 0RF Referrals Follow up/Referrals: Tommie Mckinnon MD [Primary Care Provider] - See instructions Activity Restrictions/Add. Instructions Additional Instructions/Restrictions: The [place] [facility] should be calling you to schedule appointment to have your stone taken care of. Please return with any fever, chills, night sweats or any worsening of symptoms. Clinical Impressions Clinical Impression: Calcium nephrolithiasis, PETERSON (acute kidney injury), Acute UTI Instructions Patient Instructions: Kidney Stones -- Adult, DI for Acute Abdominal Pain Discharge ED Provider: Steven Foley General Adult HPI General Chief complaint: Abdominal Pain Stated complaint: abd pain,right side Time Seen by Provider: 06/14/22 12:30 Mode of Arrival: Ambulatory Source of Information: Patient and Relative Limitations: No Limitations Description of Symptoms (Recalled from ER Triage Doc. by RN): PT reports acute onset of RLQ pain this am, denies N/V/D/dysuria; PMHx diverticulitis, appy; NAD; PCP Pratibha History of Present Illness HPI narrative: Patient is a 76-year-old male with a past medical history of nephrolithiasis, appendectomy, dementia, BPH who presents with right lower quadrant pain. He states that his pain started this morning. He says that it is mainly in his right lower quadrant but also some up in his right flank. He says that he does have a past medical history as well of diverticulitis but has not had a recent flareup. He denies any nausea, vomiting, diarrhea. Denies any dysuria. Denies any hematuria. He says that his pain is not super severe but it got progressively more uncomfortable so he wanted to come in for evaluation. Related Data Home Medications Medication Instructions Recorded Confirmed aspirin 81 mg chewable tablet 81 mg PO DAILY Blood thinner 06/06/17 11/10/21 rosuvastatin 20 mg tablet 20 mg PO DAILY Cholesterol 06/06/17 11/10/21 tamsulosin 0.4 mg capsule 0.4 mg PO DAILY prostate 90 days 04/15/18 11/10/21 #90 caps pantoprazole 40 mg tablet,delayed 40 mg PO DAILY GERD 02/06/19 11/10/21 release losartan 25 mg tablet 25 mg PO DAILY hld 01/11/21 11/10/21 donepezil 5 mg tablet 5 mg PO DAILY memory 10/07/21 11/10/21 memantine 5 mg tablet 5 mg PO DAILY memory 10/07/21 11/10/21 cefdinir 300 mg capsule 300 mg PO 10/10/21 11/10/21 Previous Rx's Medication Instructions Recorded amoxicillin 875 mg-potassium 1 tab PO Q12H #20 tabs 05/27/22 clavulanate 125 mg tablet mupirocin 2 % topical ointment 1 applic topical TID 7 days #15 05/27/22 grams cefdinir 300 mg capsule 300 mg PO BID 10 days #20 caps 06/14/22 hydrocodone 5 mg-acetaminophen 325 1 tab PO Q8H PRN pain #14 tabs 06/14/22 mg tablet ondansetron 4 mg disintegrating 4 mg PO TIDP PRN Nausea #10 tabs 06/14/22 tablet Allergies Allergy/AdvReac Type Severity Reaction Status Date / Time atorvastatin [From LIPITOR] Allergy Intermediate Verified 05/27/22 10:05 [facility] Disclaimer: The information contained in
== END 2022-06-14 15:56 | disposition home or self-care (01) ==
PROVIDERS: Emergency Provider Student in an Organized Health Care Education/Training Program; PCP Family Medicine
DX: N20.0 Calculus of kidney (principal); N17.9 Acute kidney failure, unspecified; N39.0 Urinary tract infection, site not specified; Z87.442 Personal history of urinary calculi; Z90.49 Acquired absence of other specified parts of digestive tract; F03.90 Unspecified dementia, unspecified severity, without behavioral disturbance, psychotic disturbance, mood disturbance, and anxiety; N40.0 Benign prostatic hyperplasia without lower urinary tract symptoms; K57.92 Diverticulitis of intestine, part unspecified, without perforation or abscess without bleeding
CPT/HCPCS: 74176; 80053; 81001; 83605; 83690; 85025; 96361; 96374; 99285

== ENCOUNTER 2023-09-01 21:26 | Emergency (ER) | payer MEDICARE, OTHER, SELFPAY ==
[2023-09-01 21:27] VITALS: BP 156/82; PULSE 88; RESP 18; TEMP 37.1; O2SAT 96; BMI 25.8
--- NOTE | 2023-09-01 22:37 | HMH.EDGENADL ---
Discharge Plan Disposition Patient Disposition: Home, Self-Care Chief Complaint: Abdominal Pain Clinical Impressions Clinical Impression: PETERSON (acute kidney injury), Abdominal pain Discharge ED Provider: Shahbaz Alexandre General Adult HPI General Chief complaint: Abdominal Pain Stated complaint: passing blood anally,, abd pain Time Seen by Provider: 09/01/23 21:32 Mode of Arrival: Ambulatory Source of Information: Patient Limitations: dementia Description of Symptoms (Recalled from ER Triage Doc. by RN): Pt presents with nausea and lower abdominal pain that started today, pt believes he is constipated. States he used 2 enemas with no relief, and one episode of bright red rectal bleeding today. Pt has hx of diverticulitis and kidney stones. 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 History of Present Illness HPI narrative: 78-year-old male with history of dementia, hypertension, hyperlipidemia, diverticulitis, kidney stones presenting with abdominal pain. Patient states that he has not had a bowel movement in a couple of days. Does not remember his last bowel movement. Still passing gas. Left lower quadrant cramping pain, does not radiate. Used 2 enemas today in order to try to produce bowel movement. Had blood per rectum afterward. No fever or chills, nausea or vomiting. No abdominal surgical history Please note that above description of symptoms, in this electronic medical record under categorization of recalled from ER triage doctor by RN are reflective of an initial nursing assessment, however, is not reflective of my full history and physical exam that was personally taken and clarified. Consequentially, this preceding description of symptoms, which may include the patient's categorized chief complaint in the EMR, do not reflect my personal clinical impression, and the ultimate description of history of present illness and patient stated complaints should be deferred to this section of the note. Unless stated otherwise or congruent with this section of the note, additional signs, symptoms, or incongruence should be interpreted as inaccurate with my clinical impression. Related Data Home Medications Medication Instructions Recorded Confirmed aspirin 81 mg chewable tablet 81 mg PO DAILY Blood thinner 06/06/17 11/10/21 rosuvastatin 20 mg tablet 20 mg PO DAILY Cholesterol 06/06/17 11/10/21 tamsulosin 0.4 mg capsule 0.4 mg PO DAILY prostate 90 days 04/15/18 11/10/21 #90 caps pantoprazole 40 mg tablet,delayed 40 mg PO DAILY GERD 02/06/19 11/10/21 release losartan 25 mg tablet 25 mg PO DAILY hld 01/11/21 11/10/21 donepezil 5 mg tablet 5 mg PO DAILY memory 10/07/21 11/10/21 memantine 5 mg tablet 5 mg PO DAILY memory 10/07/21 11/10/21 cefdinir 300 mg capsule 300 mg PO 10/10/21 11/10/21 Previous Rx's Medication Instructions Recorded amoxicillin 875 mg-potassium 1 tab PO Q12H #20 tabs 05/27/22 clavulanate 125 mg tablet mupirocin 2 % topical ointment 1 applic topical TID 7 days #15 05/27/22 grams cefdinir 300 mg capsule 300 mg PO BID 10 days #20 caps 06/14/22 hydrocodone 5 mg-acetaminophen 325 1 tab PO Q8H PRN pain #14 tabs 06/14/22 mg tablet ondansetron 4 mg disintegrating 4 mg PO TIDP PRN Nausea #10 tabs 06/14/22 tablet Allergies Allergy/AdvReac Type Severity Reaction Status Date / Time atorvastatin [From LIPITOR] Allergy Intermediate Verified 05/27/22 10:05 PFS PFS Disclaimer: The information contained in this section may have been updated after the patient was seen, as this information can be updated by other users. Medical History (Updated 09/01/23 @ 23:30 by Shahbaz Alexandre MD) History of diverticulitis History of kidney stones Dementia Social History Smoking Status: Never smoker alcohol intake: never substance use type: denies use current occupational status: retired Travel in the last 8 weeks: None household members: spouse housing: house caffeine: No ROS Obtained: Yes All systems reviewed & no additional complaints except as documented Physical Exam General General appearance: alert and in no apparent distress Head Head exam: atraumatic and normocephalic Eye Eye exam: Present normal appearance, PERRL and EOMI ENT ENT exam: Present mucous membranes moist Neck Neck exam: Present normal inspection, full ROM and trachea midline Respiratory Respiratory exam: Absent respiratory distress, wheezes, stridor, accessory muscle use or prolonged expiratory phase Cardiovascular Cardiovascular exam: Present normal rhythm Abdominal Exam Abdominal exam: Present soft; Absent distention, tenderness, guarding, rebound or rigidity Extremities Exam Extremities exam: Absent edema Neurological Exam Neurological exam: Present alert, oriented X3, CN II-XII intact and normal gait; Absent motor sensory deficit Skin Skin exam: Present warm and dry; Absent diaphoresis or erythema Medical Decision Making Medical Records Medical records reviewed: Yes I reviewed the patient's medical records. Robbi Inquiry Pt receiving controlled substance: No Robbi was queried for this patient: No Vital Signs: 09/01/23 21:27 Temperature 98.8 F Temperature Source Oral Pulse Rate [Left] 88 Respiratory Rate 18 Blood Pressure [Right Arm] 156/82 H Blood Pressure Mean [Right Arm] 106 Blood Pressure Source [Right Arm] Automatic Cuff Blood Pressure Position [Right Arm] Sitting 02 Sat by Pulse Oximetry 96 Oxygen Delivery Method Room Air Lab Data Lab Results 09/01/23 22:38: WBC 7.2, RBC 3.44 L, Hgb 11.5 L, Hct 36.7 L, MCV 106.7 H, MCH 33.6 H, MCHC 31.5 L, RDW 14.7, Plt Count 251, MPV 8.6, Neut % (Auto) 81.2 H, Lymph % (Auto) 11.7, [place] % (Auto) 4.3, Eos % (Auto) 2.2, Baso % (Auto) 0.6, Neut # (Auto) 5.8, Lymph # (Auto) 0.8, [place] # (Auto) 0.3, Eos # (Auto) 0.2, Baso # (Auto) 0.1, Sodium 144, Potassium 4.6, Chloride 114 H, Carbon Dioxide 17 L, Anion Gap 17.6 H, BUN 50 H, Creatinine 5.90 H, Estimated Creat Clear 11, Estimated GFR 9 L*, Est GFR ( Amer) 11 L*, Glucose 161 H, Calcium 10.2, Total Bilirubin 1.0, AST 37, ALT 16, Alkaline Phosphatase 87, Total Protein 7.6, Albumin 4.4, Globulin 3.2, Albumin/Globulin Ratio 1.4 09/01/23 23:04: Urine Color Dark yellow, Urine Appearance Clear, Urine pH 5.5, Ur Specific [place] >= 1.030, Urine Protein 2+, Urine Glucose (UA) Negative, Urine Ketones Negative, Urine Blood 3+, Urine Nitrate Negative, Urine Bilirubin 1+ A, Urine Urobilinogen 0.2, Ur Leukocyte Esterase Negative, Urine RBC 10-20, Urine WBC Occasional, Ur Squamous Epith Cells 3-5, Urine Bacteria Trace 09/01/23 22:38 09/01/23 22:38 Orders (Tests/Meds): ED MEDICATIONS Generic Name Dose Route Start Last Admin Trade Name Freq PRN Reason Stop Dose Admin Lactated Ringer's 1,000 mls @ 999 mls/hr 09/01/23 23:00 09/01/23 23:11 Lactated Ringer's 1000 Ml Bag IV 09/02/23 00:00 999 mls/hr .Q1H1M ONE Administration Discontinued Medications Generic Name Dose Route Start Last Admin Trade Name Freq PRN Reason Stop Dose Admin Ketorolac Tromethamine 15 mg 09/01/23 22:09 09/01/23 22:47 Ketorolac 30mg/Ml Vial IV 09/01/23 22:10 15 mg ONCE ONE Administration Magnesium Hydroxide 30 ml 09/01/23 22:09 09/01/23 22:47 Milk Of Magnesia 30ml Udc PO 09/01/23 22:10 30 ml ONCE ONE Administration Mineral Oil 133 ml 09/01/23 22:09 09/01/23 23:10 Mineral Oil Enema 133ml RC 09/01/23 22:10 Not Given ONCE ONE ORDERS Category Date Time Status CT abdomen pelvis wo con Stat Cat Scan 09/01/23 23:07 Ordered CBC w/Auto Diff [Complete Blood Count Auto Diff] Stat Lab 09/01/23 22:38 Completed CMP [Comprehensive Metabolic Panel] Stat Lab 09/01/23 22:38 Completed UA [Urinalysis and Microscopic] Stat Lab 09/01/23 23:04 Completed Medical Decision Narrative: 78-year-old male with history of dementia, hypertension, hyperlipidemia, diverticulitis, kidney stones presenting with abdominal pain. Patient states that he has not had a bowel movement in a couple of days. Does not remember his last bowel movement. Still passing gas. Left lower quadrant cramping pain, does not radiate. Used 2 enemas today in order to try to produce bowel movement. Had blood per rectum afterward. No fever or chills, nausea or vomiting. No abdominal surgical history. History obtained with patient and son. On evaluation, patient hemodynamically stable, very well-appearing. Abdomen is soft, nontender, nondistended. He is having no tenderness on my exam. No overlying skin changes. No flank tenderness. Differential includes PUD, gastritis, enteritis, gastroenteritis, pancreatitis, SBO, colitis, diverticulitis, nephrolithiasis, UTI, cholecystitis, choledocholithiasis, appendicitis, torsion, hepatitis, aortic pathology, mesenteric ischemia among others. Patient given Toradol, enema, milk of magnesia for symptoms. Workup demonstrated PETERSON with creatinine 5.9 and BUN 50. No anion gap. Urinalysis without concern for UTI. Patient was given fluids. Shortly thereafter, had large-volume bowel movement and relief of abdominal pain. CT abdomen pelvis was obtained out of abundance of concern, this was pending at time of admission. On my reevaluation, patient without abdominal pain, feeling much better. Results were relayed to patient and family, agreeable plan for admission. Because patient high risk for clinical decompensation, deemed appropriate for inpatient admission. Results were relayed to patient who voiced understanding and patient was agreeable to inpatient admission and management. Patient was admitted to the hospital for further definitive management. Critical Care Critical Care Time Critical Care Time: No
[2023-09-01 22:42] VITALS: BP 138/77; PULSE 74; O2SAT 99
[2023-09-01] MEDS: KETOROLAC 30MG/ML VIAL 15 MG IV (22:47)
[2023-09-01] MEDS: MILK OF MAGNESIA 30ML UDC 30 ML PO (22:47)
[2023-09-01 22:54] LABS: Chloride 114 mmol/L (98-107); Sodium 144 mmol/L (136-145)
[2023-09-01 22:55] LABS: Potassium 4.6 mmoL/L (3.5-5.1)
[2023-09-01 22:57] LABS: Alanine Aminotransferase 16 U/L (12-78); Albumin Level 4.4 g/dl (3.5-5.0); Albumin/Globulin Ratio 1.4 (1.1-1.8); Alkaline Phosphatase 87 U/L (38-126); Anion Gap 17.6 mEq/L (5-15); Aspartate Amino Transferase 37 U/L (17-59); Blood Urea Nitrogen 50 mg/dl (9-20); Carbon Dioxide 17 mmol/L (22.0-30.0); Creatinine Clearance Estimated 11 mL/min (50-200); Estimated Glomerular Filt Rate 9 ml/min (>60); GFR (African American) 11 ML/MIN (>60); Globulin 3.2 g/dL (1.3-3.2); Total Protein,Serum 7.6 g/dl (6.3-8.2)
[2023-09-01 22:58] LABS: Basophils # 0.1 K/mm3 (0-0.2); Basophils % 0.6 % (0.1-2.0); Calcium 10.2 mg/dl (8.4-10.2); Eosinophils # 0.2 K/mm3 (0.0-0.4); Eosinophils % 2.2 % (0.1-12.0); Glucose 161 mg/dl (74-100); Hematocrit 36.7 % (42.0-52.0); Hemoglobin 11.5 g/dL (14.1-18.0); Lymphocytes # 0.8 K/mm3 (0.7-4.5); Lymphocytes % 11.7 % (10-50); Mean Corpuscular HGB Conc 31.5 g/dL (31.8-35.4); Mean Corpuscular Hemoglobin 33.6 pg (27.0-31.2); Mean Corpuscular Volume 106.7 fl (80-94); Mean Platelet Volume 8.6 fl (7.4-10.4); Monocytes # 0.3 K/mm3 (0.1-1.0); Monocytes % 4.3 % (1.7-9.3); Neutrophils # 5.8 K/mm3 (1.8-7.8); Neutrophils % 81.2 % (37.0-80.0); Platelet Count 251 K/mm3 (142-424); Red Blood Count 3.44 M/mm3 (4.60-6.20); Red Cell Distribution Width 14.7 % (11.5-17.5); White Blood Count 7.2 K/mm3 (4.8-10.8)
--- NOTE | 2023-09-01 23:04 | PC.NURSE ---
dr choi notified of critical creat of 5.90
--- NOTE | 2023-09-01 23:07 | CT_ITS ---
PROCEDURE INFORMATION: Exam: CT Abdomen And Pelvis Without Contrast Exam date and time: 09/01/2023 11:27 PM Age: 78 years old Clinical indication: Abdominal pain; Additional info: Gfr low, llq abd pain history diverticulitis TECHNIQUE: Imaging protocol: Computed tomography of the abdomen and pelvis without contrast. Radiation optimization: All CT scans at this facility use at least one of these dose optimization techniques: automated exposure control; mA and/or kV adjustment per patient size (includes targeted exams where dose is matched to clinical indication); or iterative reconstruction. COMPARISON: CT ABDOMEN PELVIS WO CON 06/14/2022 2:09 PM FINDINGS: Liver: Normal. No mass. Gallbladder and bile ducts: Normal. No calcified stones. No ductal dilation. Pancreas: Normal. No ductal dilation. Spleen: Normal. No splenomegaly. Adrenal glands: Normal. No mass. Kidneys and ureters: Bilateral nonobstructive renal calculi measuring up to 0.6 cm in right kidney. Multiple tandem right distal ureteral calculi largest measuring 0.7 cm with proximal hydroureter. Stomach and bowel: Diffuse sigmoid colonic diverticula without pericolonic fat stranding. Appendix: No evidence of appendicitis. Intraperitoneal space: Unremarkable. No free air. No significant fluid collection. Vasculature: Aortoiliac arterial atherosclerotic calcification. Lymph nodes: Unremarkable. No enlarged lymph nodes. Urinary bladder: Multiple urinary bladder calculi measuring up to 0.9 cm. Concentric urinary bladder wall thickening with mild pericystic fat stranding. Reproductive: Unremarkable as visualized. Bones/joints: Age-indeterminate but stable mild L2 vertebral body compression fracture with stable loss of central vertebral body height. No acute osseous findings identified. Soft tissues: Unremarkable. IMPRESSION: 1. Multiple tandem right distal ureteral calculus ([place]) with proximal hydroureter. 2. Multiple urinary bladder calculi Urinary bladder wall thickening with mild pericystic fat stranding suspicious for low-grade cystitis. 3. Bilateral nonobstructive renal calculi. 4. Colonic diverticulosis. 5. Age-indeterminate but nonacute L2 vertebral body compression fracture.
--- NOTE | 2023-09-01 23:08 | PC.NURSE ---
Patient had a large formed light brown bowel movement. No blood noted in stool at this time. Patient provided urine sample at this time as well.
[2023-09-01 23:09] LABS: Appearance,Urine CLEAR (Clear); Blood, Urine 3+ (Negative); Glucose,Urine (UA) Negative (Negative); Ketones,Urine Negative (Negative); Leukocyte Esterase,Urine Negative (Negative); Microscopic, Urine URINE MICROSCOPIC (MICROSCOPIC); Nitrate,Urine Negative (Negative); PH,Urine 5.5 (5.0-8.5); Protein,Urine 2+ (Negative); Specific Gravity, Urine >= 1.030 (1.005-1.030); Urobilinogen,Urine 0.2 EU/dl (0.2)
[2023-09-01] MEDS: LACTATED RINGERS 1000ML 1,000 ML 999 ML IV (23:11)
--- NOTE | 2023-09-01 23:11 | PC.NURSE ---
Dr Alexandre on phone with hospitalist at this time
[2023-09-01 23:15] LABS: Bilirubin,Urine 1+ (Negative); Color,Urine Dark Yellow (Yellow)
--- NOTE | 2023-09-01 23:15 | PC.NURSE ---
called warehouse inventory clerk at this time for bed request. pt being admitted to hospitalist with dx xavier
[2023-09-01 23:23] LABS: WBC,Urine Occasional #/hpf (0-3)
[2023-09-01 23:24] LABS: Bacteria,Urine Trace /lpf
--- NOTE | 2023-09-01 23:30 | PC.NURSE ---
report called to ida liu rn at this time
--- NOTE | 2023-09-01 23:44 | PC.NURSE ---
MD choi spoke with Hospitalist at this time. Pt will not be admitted here at [facility]. S latashaood calling [facility] at this time for possible transfer.
--- NOTE | 2023-09-02 00:02 | PC.NURSE ---
on phone with hospitalist @ [facility]
--- NOTE | 2023-09-02 00:04 | PC.NURSE ---
pt accepted to [facility] by dr jj
--- NOTE | 2023-09-02 00:26 | PC.NURSE ---
sari called for bed assignment, pt going to 6th floor at [facility]. phone number provided to call to give report to receiving RN
--- NOTE | 2023-09-02 00:30 | PC.NURSE ---
Attempted to call report to [facility] 6th floor. No answer. Will attempt again.
--- NOTE | 2023-09-02 00:42 | PC.NURSE ---
[facility] notified of need for transfer
[2023-09-02 01:02] VITALS: BP 151/82; PULSE 71; RESP 17; TEMP 36.7; O2SAT 97
== END 2023-09-02 01:07 | disposition short-term general hospital (02) ==
LOC: ER 21:51 → 2ND 23:20 → ER 23:44
PROVIDERS: Emergency Medicine; Emergency Provider Emergency Medicine; PCP Family Medicine
DX: N20.2 Calculus of kidney with calculus of ureter (principal); N13.4 Hydroureter; N17.9 Acute kidney failure, unspecified; R10.32 Left lower quadrant pain; I10 Essential (primary) hypertension; E78.5 Hyperlipidemia, unspecified
CPT/HCPCS: 74176; 80053; 81001; 85025; 96361; 96374; 99285